=== PATIENT | male | born 1960 | race Caucasian/White ===

== ENCOUNTER 2018-08-10 14:13 | Emergency (ER) | payer OTHER ==
[~2018-08-10] VITALS: Ht 190.5 cm; Wt 106.6 kg
[2018-08-10 14:56] LABS: BASOPHILS # (AUTO) 0.1 10^3/uL (0.0-0.1); BASOPHILS % (AUTO) 1 % (0-10); EOSINOPHILS # (AUTO) 0.1 10^3/uL (0.0-0.3); EOSINOPHILS % (AUTO) 1 % (0-10); HEMATOCRIT 43 % (40-54); HEMOGLOBIN 14.6 G/DL (13.3-17.7); LYMPHOCYTES # (AUTO) 2.8 X 10^3 (1.0-4.0); LYMPHOCYTES % (AUTO) 48 % (12-44); MEAN CORPUSCULAR HEMOGLOBIN 33 PG (25-34); MEAN CORPUSCULAR HGB CONC 34 G/DL (32-36); MEAN CORPUSCULAR VOLUME 96 FL (80-99); MEAN PLATELET VOLUME 9.9 FL (7.4-10.4); MONOCYTES # (AUTO) 0.9 X 10^3 (0.0-1.0); MONOCYTES % (AUTO) 15 % (0-12); NEUTROPHILS % (AUTO) 34 % (42-75); PLATELET COUNT 258 10^3/uL (130-400); RED CELL DISTRIBUTION WIDTH 14.5 % (10.0-14.5); WHITE BLOOD COUNT 5.8 10^3/uL (4.3-11.0)
[2018-08-10 15:05] LABS: BILIRUBIN,URINE NEGATIVE (NEGATIVE); CLARITY,URINE SLIGHTLY CLOUDY; COLOR,URINE YELLOW; GLUCOSE, URINE (UA) NEGATIVE (NEGATIVE); KETONES,URINE NEGATIVE (NEGATIVE); LEUKOCYTE ESTERASE ,URINE 1+ (NEGATIVE); NITRITE,URINE NEGATIVE (NEGATIVE); PH,URINE 6 (5-9); PROTEIN,URINE NEGATIVE (NEGATIVE); UROBILINOGEN,URINE 1 MG/DL (NORMAL)
[2018-08-10 15:12] LABS: BACTERIA,URINE NEGATIVE /HPF; SQUAMOUS EPITHELIAL CELL,UR 0-2 /HPF; WBC,URINE 0-2 /HPF
[2018-08-10 15:15] LABS: ALANINE AMINOTRANSFERASE 1280 U/L (0-55); ALKALINE PHOSPHATASE 391 U/L (40-136); AMYLASE 65 U/L (25-125); BILIRUBIN,TOTAL 3.2 MG/DL (0.1-1.0); BUN/CREATININE RATIO 17; CALCIUM 9.4 MG/DL (8.5-10.1); CARBON DIOXIDE 25 MMOL/L (21-32); CHLORIDE 105 MMOL/L (98-107); CREATININE SERUM 0.76 MG/DL (0.60-1.30); GFR ESTIMATED > 60; GLUCOSE 109 MG/DL (70-105); LIPASE 58 U/L (8-78); POTASSIUM 4.4 MMOL/L (3.6-5.0); SODIUM 143 MMOL/L (135-145); TOTAL PROTEIN 7.1 GM/DL (6.4-8.2)
[2018-08-10] MEDS ORDERED: IOHEXOL 350 MG/ML 100 ML (OMNIPAQUE 350) VIAL IV ONE (15:30)
[2018-08-10] MEDS ORDERED: NS 100 ML (IVPB) BAG IV ONE (15:30)
[2018-08-10] MEDS ORDERED: RECEIVED CONTRAST (Hold Metformin) IV SCH (15:30)
--- NOTE | 2018-08-10 16:19 | Diagnostic Imaging Report ---
PROCEDURE: CT abdomen and pelvis with contrast. TECHNIQUE: Multiple contiguous axial images were obtained through the abdomen and pelvis after administration of intravenous contrast. INDICATION: Elevated liver enzymes. COMPARISON: No prior studies are available for comparison. FINDINGS: The lung bases are clear. The liver does show some generalized low density suggestive of hepatic steatosis. No discrete liver mass is identified. The gallbladder is unremarkable. No biliary ductal dilatation is seen. The pancreas and spleen are unremarkable. No adrenal mass is seen. There appears to be a tiny nonobstructing calculus in the lower pole of the right kidney. No hydronephrosis is identified. The aorta is non-aneurysmal. No central retroperitoneal or mesenteric lymphadenopathy is seen. Bowel loops are normal in caliber. The appendix is visualized and unremarkable. There is diverticulosis of the sigmoid colon but no evidence of acute diverticulitis. There is no ascites. No pelvic lymphadenopathy is seen. The bladder is unremarkable. IMPRESSION: 1. Hepatic steatosis. 2. Uncomplicated sigmoid diverticulosis. 3. No acute feature is detected. Dictated by: Dictated on workstation # [id number]
--- NOTE | 2018-08-10 16:20 | NUR ---
RESTING IN CHAIR ET DENIES NEEDS. STATED HE WENT OUT TO WALK HIS DOG WHO HE LEFT IN THE CAR.
--- NOTE | 2018-08-10 16:49 | NUR ---
DR MICHAELS IN TALKING TO PT AT THIS TIME.
--- NOTE | 2018-08-10 16:59 | ED General ---
General Chief Complaint: General Problems/Pain Stated Complaint: ELEVATED LIVER ENZYMES Nursing Triage Note: [facility] WAS TOLD TO COME TO THE ER DUE TO ELEVATED LIVER ENZYMES. PT REQUEST A HEP A TEST TO BE DONE. PT STATES HIS URINE IS DARK AND STOOL IS LIGHT IN COLOR. Nursing Sepsis Screen: No Definite Risk Source of Information: Patient Exam Limitations: No Limitations History of Present Illness Date Seen by Provider: Aug 10, 2018 Time Seen by Provider: 14:38 Initial Comments 58 year old male who presents to the emergency room with complains of elevated liver enzymes. He reports that last week he had blood drawn in at the [facility] [place] and was instructed to go to the ER today due to the test results for evaluation. Denies pain. Reports dark urine. Timing/Duration: 1 Day Associated Systoms: Denies Symptoms Allergies and Home Medications Allergies Coded Allergies: No Known Drug Allergies (Unverified , 08/10/18) Patient Home Medication List Home Medication List Reviewed: Yes Review of Systems Review of Systems Constitutional: no symptoms reported, see HPI Hematologic/Lymphatic: See HPI, Other (elevated liver enzymes) All Other Systems Reviewed Negative Unless Noted: Yes Past Uddcciq-Belqpz-Jojdck Hx Past Med/Social Hx: Reviewed Nursing Past Med/Soc Hx Patient Social History Alcohol Use: Denies Use Recreational Drug Use: No Smoking Status: Never a Smoker Recent Foreign Travel: No Contact w/Someone Who Travel: No Recent Infectious Disease Expo: No Seasonal Allergies Seasonal Allergies: Yes Past Medical History Surgeries: Yes (LYPOMA REMOVAL) Nose, Orthopedic, Tonsillectomy Respiratory: No Cardiac: Yes High Cholesterol, Hypertension Neurological: No Genitourinary: Yes (TROUBLE VOIDING) Gastrointestinal: No Musculoskeletal: No Endocrine: Yes Diabetes, Non-Insulin dep Cancer: No Psychosocial: Yes Anxiety, Bipolar Integumentary: No Family Medical History Reviewed Nursing Family Hx Physical Exam Vital Signs Vital Signs - First Documented 08/10/18 14:27 Temp 98.0 Pulse 83 Resp 16 B/P (MAP) 121/86 (98) Pulse Ox 96 O2 Delivery Room Air Capillary Refill : Less Than 3 Seconds Height, Weight, BMI Height: 6'3.00" Weight: 235lbs. oz. 106.924289fr; BMI Method:Stated General Appearance: No Apparent Distress, WD/WN Eyes: Bilateral Eye Normal Inspection, Bilateral Eye PERRL, Bilateral Eye EOMI HEENT: PERRL/EOMI, TMs Normal, Normal ENT Inspection, Pharynx Normal Respiratory: Chest Non Tender, Lungs Clear, Normal Breath Sounds, No Accessory Muscle Use, No Respiratory Distress Cardiovascular: Regular Rate, Rhythm, No Edema, No Gallop, No JVD, No Murmur, Normal Peripheral Pulses Gastrointestinal: Normal Bowel Sounds, No Organomegaly, No Pulsatile Mass, Non Tender, Soft Neurologic/Psychiatric: Alert, Oriented x3, Normal Mood/Affect Skin: Normal Color, Warm/Dry Progress/Results/Core Measures Suspected Sepsis Recent Fever Within 48 Hours: No Infection Criteria Present: None New/Unexplained Altered Menta: No Sepsis Screen: No Definite Risk SIRS Temperature:98.0 Pulse: 83 Respiratory Rate: 16 Laboratory Tests 08/10/18 14:48: White Blood Count 5.8 Blood Pressure 121 /86 Mean: 98 Laboratory Tests 08/10/18 14:48: Creatinine 0.76, Platelet Count 258, Total Bilirubin 3.2H Results/Orders Lab Results Laboratory Tests Test 08/10/18 14:48 08/10/18 14:55 Range/Units White Blood Count 5.8 4.3-11.0 10^3/uL Red Blood Count 4.48 4.35-5.85 10^6/uL Hemoglobin 14.6 13.3-17.7 G/DL Hematocrit 43 40-54 % Mean Corpuscular Volume 96 80-99 FL Mean Corpuscular Hemoglobin 33 25-34 PG Mean Corpuscular Hemoglobin Concent 34 32-36 G/DL Red Cell Distribution Width 14.5 10.0-14.5 % Platelet Count 258 130-400 10^3/uL Mean Platelet Volume 9.9 7.4-10.4 FL Neutrophils (%) (Auto) 34 L 42-75 % Lymphocytes (%) (Auto) 48 H 12-44 % Monocytes (%) (Auto) 15 H 0-12 % Eosinophils (%) (Auto) 1 0-10 % Basophils (%) (Auto) 1 0-10 % Neutrophils # (Auto) 2.0 1.8-7.8 X 10^3 Lymphocytes # (Auto) 2.8 1.0-4.0 X 10^3 Monocytes # (Auto) 0.9 0.0-1.0 X 10^3 Eosinophils # (Auto) 0.1 0.0-0.3 10^3/uL Basophils # (Auto) 0.1 0.0-0.1 10^3/uL Sodium Level 143 135-145 MMOL/L Potassium Level 4.4 3.6-5.0 MMOL/L Chloride Level 105 98-107 MMOL/L Carbon Dioxide Level 25 21-32 MMOL/L Anion Gap 13 5-14 MMOL/L Blood Urea Nitrogen 13 7-18 MG/DL Creatinine 0.76 0.60-1.30 MG/DL Estimat Glomerular Filtration Rate > 60 BUN/Creatinine Ratio 17 Glucose Level 109 H 70-105 MG/DL Calcium Level 9.4 8.5-10.1 MG/DL Corrected Calcium 9.4 8.5-10.1 MG/DL Total Bilirubin 3.2 H 0.1-1.0 MG/DL Aspartate Amino Transf (AST/SGOT) 529 H 5-34 U/L Alanine Aminotransferase (ALT/SGPT) 1280 H 0-55 U/L Alkaline Phosphatase 391 H 40-136 U/L Total Protein 7.1 6.4-8.2 GM/DL Albumin 4.0 3.2-4.5 GM/DL Amylase Level 65 25-125 U/L Lipase 58 8-78 U/L Hepatitis A IgM Antibody Reactive H Non-Reactive Hepatitis B Surface Antigen Non-Reactive Non-Reactive Hepatitis B Core IgM Antibody Non-Reactive Non-Reactive Hepatitis C Antibody Non-Reactive Non-Reactive Urine Color YELLOW Urine Clarity SLIGHTLY CLOUDY Urine pH 6 5-9 Urine Specific [place] 1.025 H 1.016-1.022 Urine Protein NEGATIVE NEGATIVE Urine Glucose (UA) NEGATIVE NEGATIVE Urine Ketones NEGATIVE NEGATIVE Urine Nitrite NEGATIVE NEGATIVE Urine Bilirubin NEGATIVE NEGATIVE Urine Urobilinogen 1 NORMAL MG/DL Urine Leukocyte Esterase 1+ H NEGATIVE Urine RBC (Auto) NEGATIVE NEGATIVE Urine RBC NONE /HPF Urine WBC 0-2 /HPF Urine Squamous Epithelial Cells 0-2 /HPF Urine Crystals NONE /LPF Urine Bacteria NEGATIVE /HPF Urine Casts NONE /LPF Urine Mucus NEGATIVE /LPF Urine Culture Indicated NO My Orders Orders - WILMER MCALLISTER Comprehensive Metabolic Panel (08/10/18 14:37) Lipase (08/10/18 14:37) Amylase (08/10/18 14:37) Ua Culture If Indicated (08/10/18 14:37) Saline Lock/Iv-Start (08/10/18 14:37) Cbc With Automated Diff (08/10/18 14:37) Ct Abdomen/Pelvis W (08/10/18 14:37) Hepatitis Panel Acute (08/10/18 14:37) Iohexol Injection (Omnipaque 350 Mg/Ml 1 (08/10/18 15:30) Di Iv Start (Assessment) .IV start (08/10/18 15:27) Contrast Received (Contrast Received) (08/10/18 15:30) Ns (Ivpb) (Sodium Chloride 0.9% Ivpb Bag (08/10/18 15:30) Medications Given in ED Vital Signs/I&O Capillary Refill : Less Than 3 Seconds Blood Pressure Mean: 98 Progress Note : Time: 16:50 Progress Note I have seen and evaluated the patient. I have informed him of his liver enzymes and imaging studies. He is on atorvastatin. I have instructed him to stop this medication. I have also drawn hepatitis pane due to the elevated levels. He agrees with plan of care, plans for discharge, return precautions were given. Diagnostic Imaging Diagonstic Imaging: CT Plain Films/CT/US/NM/MRI: abdomen, pelvis Comments NAME: CAT OLIVAS MED REC#: [id number] PHYSICIAN: WILMER MCALLISTER CC: TY MCALLISTER STEPHEN D MD Page 2 of 2 RADIOLOGY REPORT [facility], [facility]. [place], [place] CC: TY MCALLISTER STEPHEN D MD Page 1 of 1 RADIOLOGY REPORT NAME: CAT OLIVAS MED REC#: [id number] PT STATUS: DEP ER : 1960 PHYSICIAN: WILMER MCALLISTER ADMIT DATE: 08/10/18/ER Signed Date of Exam: 08/10/18 CT ABDOMEN/PELVIS W PROCEDURE: CT abdomen and pelvis with contrast. TECHNIQUE: Multiple contiguous axial images were obtained through the abdomen and pelvis after administration of intravenous contrast. INDICATION: Elevated liver enzymes. COMPARISON: No prior studies are available for comparison. FINDINGS: The lung bases are clear. The liver does show some generalized low density suggestive of hepatic steatosis. No discrete liver mass is identified. The gallbladder is unremarkable. No biliary ductal dilatation is seen. The pancreas and spleen are unremarkable. No adrenal mass is seen. There appears to be a tiny nonobstructing calculus in the lower pole of the right kidney. No hydronephrosis is identified. The aorta is non-aneurysmal. No central retroperitoneal or mesenteric lymphadenopathy is seen. Bowel loops are normal in caliber. The appendix is visualized and unremarkable. There is diverticulosis of the sigmoid colon but no evidence of acute diverticulitis. There is no ascites. No pelvic lymphadenopathy is seen. The bladder is unremarkable. IMPRESSION: 1. Hepatic steatosis. 2. Uncomplicated sigmoid diverticulosis. 3. No acute feature is detected. Dictated by: Dictated on workstation # [id number] Dict: 08/10/18 1605 Trans: 08/10/18 174 Interpreted by: ORALIA CEDENO MD Electronically signed by: ORLAIA CEDENO MD 08/10/181741 Reviewed: Reviewed by Me Departure Impression Primary Impression: Elevated liver enzymes Disposition: HOME, SELF-CARE Condition: Stable/Unchanged Departure-Patient Inst. Decision time for Depature: 16:57 Referrals: NO,LOCAL PHYSICIAN (PCP/Family) Primary Care Physician Patient Instructions: Nonalcoholic Fatty Liver Disease (DC) Add. Discharge Instructions: Stop your atorvastatin. Do not take any Tylenol. [facility] to schedule an appointment time so they can be aware of your laboratory findings and your CT results of fatty liver. Return back to the emergency room for any worsening abdominal pain, nausea, vomiting, yellowing of the skin, or any other concerns as needed. All discharge instructions reviewed with patient and/or family. Voiced understanding. WILMER MCALLISTER Aug 10, 2018 16:59
[2018-08-10 17:05] VITALS: BP 126/81
[2018-08-11 06:33] LABS: HEPATITIS C ANTIBODY C Non-Reactive (Non-Reactive)
== END 2018-08-10 17:05 | disposition home or self-care (01) ==
LOC: ER 14:14
DX: R94.5 Abnormal results of liver function studies (principal); I10 Essential (primary) hypertension; E78.00 Pure hypercholesterolemia, unspecified; E11.9 Type 2 diabetes mellitus without complications; F41.9 Anxiety disorder, unspecified; F31.9 Bipolar disorder, unspecified; Z90.89 Acquired absence of other organs
CPT/HCPCS: 36415; 74177; 80053; 80074; 81000; 82150; 83690; 85025